=== PATIENT | female | born 1950 | race Two or more races ===

== ENCOUNTER 2024-11-08 08:12 | Outpatient (AMB) | payer MEDICARE, SELFPAY ==
--- NOTE | 2024-11-08 08:23 | MHC.OFFVIS ---
Vital Signs 11/08/24 08:35 Height 4 ft 11 in Weight 146 lb BMI 29.5 BP 143/63 H Blood Pressure Location Rt brachial Position Sitting Pulse 77 Intake Visit Reasons: inguinal hernia Intake Note: Patient referred by pcp Aby Chavez PA-C for assessment of Rt inguinal hernia. Patient c/o: on and off pain for 8mo. Hx of osteoporosis. Abdomen US/ [facility]: 10-28-2024 CT abd pelvis: 06-21-2024 Financial Services Sales Representative Required: No Accompanied by: daughter Tali Allergies No Known Allergies Allergy (Verified 11/08/24 08:28) Medication List - Last Reconciled 11/08/24 by Clement Jaramillo MD acetaminophen (Tylenol) 325 mg PO QID PRN ascorbic acid (vitamin C) mg PO cholecalciferol (vitamin D3) 125 mcg PO DAILY diclofenac sodium 75 mg PO BID lisinopril-hydrochlorothiazide 10-12.5 mg 1 tab PO DAILY lorazepam 0.5 mg PO BID PRN HPI Comments Details: 74-year-old female patient presenting for evaluation of a right inguinal hernia. She reports having persistent pain in the right lower quadrant radiating into the back for at least 8 months. This was initially thought to be related to osteoarthritis in the hip. She underwent cortisone injections without any improvement. They also were concerned about arthritis in the spine and similarly underwent cortisone injections without improvement. She began to feel a lump in the right groin which increased in size with standing and walking but would reduce slightly when in bed. Palpation of the lump caused pain. Subsequent workup with ultrasound revealed a right inguinal hernia containing fat. She presents today to discuss repair of this right inguinal hernia. She does report nausea without vomiting, anorexia, diarrhea without constipation. She has a previous history of cholecystectomy, hyperactive bladder for which she received Botox injections and ectopic 46 years ago. She had a previous midline incision for the ectopic . She later underwent abdominoplasty approximately 20 years ago and now has a low transverse incision. [facility] Medical History Mass of left adrenal gland Pain of right hip joint Impaired fasting glucose Right lower quadrant pain Urinary incontinence Palpitations Fatigue Cervical paraspinous muscle spasm Spasm of back muscles Lumbar radiculopathy Low back pain Spinal stenosis of lumbar region Degeneration of lumbosacral intervertebral disc Acquired cystic kidney disease Gastroduodenitis Allergic rhinitis Low blood pressure Carpal tunnel syndrome Migraine Obstructive sleep apnea syndrome Stress Tension type headache Anxiety Major depressive disorder Anemia Hyperlipidemia UTI (urinary tract infection) Hyperactivity of bladder Osteoporosis HTN (hypertension) Surgical History Hx laparoscopic cholecystectomy History of arthroplasty of left knee Family History Mother Uterine cancer Malignant neoplasm of liver Heart disease Sister Breast cancer Depressive disorder Malignant neoplasm of ovary Malignant neoplasm of lung Father Prostate CA Daughter Chronic leukemia Daughter Colon cancer Social History Alcohol intake: current Alcohol intake frequency: holidays/special occasions only Patient Tobacco Use Status: Never used Tobacco Review of Systems Const All systems reviewed & are unremarkable except as noted in HPI and below Physical Exam Vital Signs: Last Vital Signs Pulse 77 11/08/24 08:35 BP 143/63 H 11/08/24 08:35 BMI result Body Mass Index 29.5 Const General: cooperative and no acute distress Nutritional Appearance: well nourished Orientation/consciousness: patient oriented x3 Limitations: no limitations HEENT Head: Yes normocephalic and Yes atraumatic Ears: hearing grossly normal bilaterally Resp Effort & Inspection: normal respiratory effort, no audible wheezes, no cough and no respiratory distress Cardio Jugular venous distension: no JVD GI Other: Palpable mass in noted in the right groin below the abdominoplasty incision which increases with Valsalva maneuvers but does reduce with light pressure. There is some mild tenderness to palpation. No hernia noted on the left side. No umbilical hernia. Inspection: Yes normal to inspection Skin Other: Warm, dry, no rash Neuro General: patient oriented x3 Extrem General: Yes no clubbing, cyanosis or edema Assessment & Plan Assessment & Plan (1) Reducible right inguinal hernia: Code(s): K40.90 - Unilateral inguinal hernia, without obstruction or gangrene, not specified as recurrent Category: Medical Plan 74-year-old female patient presenting with a reducible right inguinal hernia. I reviewed the options for repair and after discussion of the procedure, risks and alternatives, she consents to an open repair of the right inguinal hernia with mesh. This will be performed as a short-stay surgery. We discussed postoperative management including restricted lifting to 10 lb for the 1st month after surgery. She expressed understanding and agrees with the plan. Coding Level of Care Code New Pt Level 4 (41109) Diagnoses Reducible right inguinal hernia K40.90
[2024-11-08 08:35] VITALS: BP 143/63; PULSE 77; BMI 29.5
== END 2024-11-08 08:56 | disposition home or self-care (01) ==
LOC: HO.HGS 08:13
PROVIDERS: PCP Student in an Organized Health Care Education/Training Program; Visit Provider Surgery
DX: K40.90 Unilateral inguinal hernia, without obstruction or gangrene, not specified as recurrent (principal)
CPT/HCPCS: 99204

== ENCOUNTER → 2024-11-08 08:12 | Outpatient (BNVA) | payer MEDICARE, SELFPAY | PROVIDERS: PCP Student in an Organized Health Care Education/Training Program; Visit Provider Surgery | DX: K40.90 Unilateral inguinal hernia, without obstruction or gangrene, not specified as recurrent (principal) | CPT/HCPCS: 99202 ==

== ENCOUNTER 2024-11-30 09:55 | Day surgery (SDC) | payer MEDICARE, SELFPAY ==
[2024-11-25 08:31] VITALS: BMI 29.5
--- OUTSIDE RECORDS SUMMARY | 2024-11-25 10:52 | XMS_ITS | Clinical Summary ---
Author Organization [address] [facility] Address [address] [place] [address] Phone Care Team Providers Care Circular Shear Operator Name Role Phone Dalton Fernandez MD Primary Care Provider [phone] Social History Tobacco Use Types Packs/Day Years Used Date Smoking Tobacco: Never Assessed Comments Unknown Sex and Gender Information Value Date Recorded Sex Assigned at Not on file Legal Sex Female 8:53 AM EST Gender Identity Not on file Sexual Orientation Not on file Plan of Treatment Health Maintenance Due Date Last Done Comments DTaP,Tdap,and Td Vaccines (1 - Tdap) 1971 Pneumococcal Vaccine: 50+ Years (1 of 1 - PCV) 2002 Zoster Vaccines (1 of 2) 2002 Colorectal Cancer Screening: Colonoscopy 03/02/2022 Falls Risk Assessment 03/02/2022 Hepatitis C Screening 03/02/2022 Medicare Annual Wellness Visit 03/02/2022 Social Influencers of Health Screening 03/02/2022 COVID-19 Vaccine ( season) 2023 Depression Screening 03/30/2024 Influenza Vaccine (#1) 2024 Breast Cancer Screening 07/23/2025 07/24/19 24, 07/22/2022, 07/19/2021, Additional history exists RSV Immunization Adult Patients (1 - 1-dose 75+ series) 2027 Osteoporosis Screening (Bone Density Screening) 07/27/2033 07/28/2023 HIB Vaccines Aged Out No longer eligi ble based on patient's age to complete this topic HPV Vaccines Aged Out No longer eligi ble based on patient's age to complete this topic Hepatitis A Vaccines Aged Out No long er eligible based on patient's age to complete this topic Hepatitis B Vaccines Aged Out No long er eligible based on patient's age to complete this topic IPV Vaccines Aged Out No longer eligi ble based on patient's age to complete this topic MMR Vaccines Aged Out No longer eligi ble based on patient's age to complete this topic Meningococcal ACWY Vaccine Aged Out N o longer eligible based on patient's age to complete this topic Meningococcal B Vaccine Aged Out No l onger eligible based on patient's age to complete this topic RSV Immunization Patients Under 20 months Aged Out No longer eligible based on patient's age to complete this topic Varicella Vaccines Aged Out No longer eligible based on patient's age to complete this topic Procedures Procedure Name Priority Date/Time Associated Diagnosis Comments [facility] DEXA AXIAL SKELETON Routine 07/28/2023 10:57 AM EDT Age-related osteoporosis without current pathological fracture [facility] SCREENING DIGITAL Routine 07/24/2023 3:39 PM EDT Encounter for screening mammogram for malignant neoplasm of breast from Last 3 Months or Most Recently Relevant to Health Maintenance Results * [facility] DEXA AXIAL SKELETON (07/28/2023 10:57 AM EDT) Anatomical Region Laterality Modality Mammography 07/28/2023 10:2 8 AM EDT Narrative 07/28/2023 10:57 AM EDT [facility] Diagnostic Imaging Department [address] [place] [address] Patient: JARQUINDIANE /Age/Sex: 1950 - 73 - F Unit#: [id number] Location/Status: SPDIMAM/REG CLI [facility] Ordering Physician: COBY MCKEON PA-C [facility] Dexa Axial Skeleton - 07/28/23 - 1049 Report Status:Signed HISTORY: The patient is a 73-year-old postmenopausal female with clinical concern for metabolic bone disease. FINDINGS: Dual energy x-ray absorptiometry of the lumbar spine and femurs is performed. The mean bone mineral density at L1-2 is 0.962 gm/cm2 which is 83% of that of young normals and 96% of that of age matched controls. This yields a T- score of -1.7 and a Z-score of -0.3 which is diagnostic of osteopenia. The mean bone mineral density of the femurs bilaterally is 0.779 gm/cm2 which is 77% of that of young normals and 92% of that of age matched controls. This yields a T-score of -1.8 and a Z-score of -0.5 which is diagnostic of osteopenia. However, the T-score of the right femoral neck is -3.0 and that of the left femoral neck is -2.5 which is diagnostic of osteoporosis. IMPRESSION: 1. Osteoporosis. 2. FRAX analysis yields a 10-year probability of major osteoporotic fracture of 10.4% and a 10-year probability of hip fracture of 3.3%. Code 35185 Dictating Physician: MIGUEL VALDIVIA MD Electronically Signed by: MIGUEL VALDIVIA MD Dic Date/Time: 07/28/23 1056 Sign date/Time: 07/28/23 105 Procedure Note Miguel Valdivia MD - 11/16/2023 [facility] Diagnostic Imaging Department [address] [place] [address] [id number] Patient: DIANE JARQUIN/Age/Sex: 1950 - 73 - F Unit#: [id number] Location/Status: SPDIMAM/REG CLI Mnemonic/Ordering Site: [facility] Ordering Physician: COBY MCKEON PA-C [facility] Dexa Axial Skeleton - 07/28/23 - 104 Report Status:Signed HISTORY: The patient is a 73-year-old postmenopausal female withclinical concern for metabolic bone disease. FINDINGS: Dual energy x-ray absorptiometry of the lumbar spine and femursis performed. The mean bone mineral density at L1-2 is 0.962 gm/cm2 which is83% of that of young normals and 96% of that of age matched controls. This yieldsa T- score of -1.7 and a Z-score of -0.3 which is diagnostic of osteopenia. The mean bone mineral density of the femurs bilaterally is 0.779 gm/hy3fkvub is 77% of that of young normals and 92% of that of age matched controls.This yields a T-score of -1.8 and a Z-score of -0.5 which is diagnostic of osteopenia. However, the T-score of the right femoral neck is -3.0 andthat of the left femoral neck is -2.5 which is diagnostic of osteoporosis. IMPRESSION: 1. Osteoporosis. 2. FRAX analysis yields a 10-year probability of major osteoporoticfracture of 10.4% and a 10-year probability of hip fracture of 3.3%. Code 17554 Dictating Physician: MIGUEL VALDIVIA MD Electronically Signed by: MIGUEL VALDIVIA MD Dic Date/Time: 07/28/23 105 Sign date/Time: 07/28/231056 Coby CHINO IMG BI PROCEDURES Final Result * [facility] SCREENING DIGITAL (07/24/2023 3:39 PM EDT) Anatomical Region Laterality Modality Mammography 07/24/2023 12:4 0 PM EDT Narrative 07/24/2023 3:39 PM EDT [facility] Diagnostic Imaging Department [address] [place] [id number] Patient: DIANE JARQUIN /Age/Sex: 1950 - 73 - F Unit#: [id number] Location/Status: CHRISTOPHER/LONA CLI Mnemonic/Ordering Site: [facility] Ordering Physician: SAM GUILLEN PA-C [facility] Screening Digital - 07/24/23 - 1301 Report Status:Signed EXAM: [facility] Screening Digital EXAM DATE AND TIME: 07/24/2023 1:02 PM HISTORY: Screening. Reduction mammoplasty in 2005. Previous left breast biopsy, pathology benign. Sister had breast carcinoma at age 52. COMPARISON: 07/21/22, 07/19/21, 06/16/20 and earlier exams dating back to 2009. TECHNIQUE: Bilateral digital breast tomosynthesis was performed in the CC and MLO projections. Computer aided detection with [employer] 3D 3.1 was employed. TISSUE DENSITY: a. The breasts are almost entirely fatty. FINDINGS: Reduction mammoplasty sequelae are again noted. No suspicious masses, grouped microcalcifications, or developing architectural distortion are seen. A 1 cm nodular asymmetry in the central right breast is unchanged dating back to the 2009 study, considered benign. Few coarse, benign calcifications are again seen, including skin calcifications. The vascularity is unremarkable. IMPRESSION: Stable mammographic appearance of the breasts. No evidence of malignancy is seen. A negative mammogram in the presence of a clinically suspicious palpable abnormality does not preclude the possibility of malignancy or alter the indications for biopsy. BI-RADS: Category 2: Benign RECOMMENDATION(S): 1: Routine screening mammogram BILATERAL in 1 year. Dictating Physician: JUDITH GLEZ MD Electronically Signed by: JUDITH GLEZ MD Dic Date/Time: 07/24/237 Sign date/Time: 07/24/23 153 Procedure Note Judith Glez MD - 11/16/2023 [facility] Diagnostic Imaging Department [address] [place] [address] Patient: BRITTONDIANE /Age/Sex: 1950 - 73 - F Unit#: [id number] Location/Status: [facility] Mnemonic/Ordering Site: [facility] Ordering Physician: SAM GUILLEN PA-C [facility] Screening Digital - 07/24/23 - 1301 Report Status:Signed EXAM: [facility] Screening Digital EXAM DATE AND TIME: 07/24/2023 1:02 PM HISTORY: Screening. Reduction mammoplasty in 2005. Previous left breast biopsy, pathology benign. Sister had breast carcinoma at age 52. COMPARISON: 07/21/22, 07/19/21, 06/16/20 and earlier exams dating back [id number]. TECHNIQUE: Bilateral digital breast tomosynthesis was performed in the CCand MLO projections. Computer aided detection with [employer] AI 3D 3.1was employed. TISSUE DENSITY: a. The breasts are almost entirely fatty. FINDINGS: Reduction mammoplasty sequelae are again noted. No suspicious masses, grouped microcalcifications, or developingarchitectural distortion are seen. A 1 cm nodular asymmetry in the central right breastis unchanged dating back to the 2009 study, considered benign. Few coarse,benign calcifications are again seen, including skin calcifications. Thevascularity is unremarkable. IMPRESSION: Stable mammographic appearance of the breasts. No evidence of malignancyis seen. A negative mammogram in the presence of a clinically suspicious palpable abnormality does not preclude the possibility of malignancy or alter the indications for biopsy. BI-RADS: Category 2: Benign RECOMMENDATION(S): 1: Routine screening mammogram BILATERAL in 1 year. Dictating Physician: JUDITH GLEZ MD Electronically Signed by: JUDITH GLEZ MD Dic Date/Time: 07/24/23 1537 Sign date/Time: 07/24/231538 Sam CHINO IMG BI PROCEDURES Loren l Result from Last 3 Months or Most Recently Relevant to Health Maintenance Insurance [employer] MEDICARE Care Teams Circular Shear Operator Relationship Specialty Start Date End Date Dalton Fernandez MD [address] [facility] [address] [place], [place] PCP - General Internal Medicine 08/06/12
--- NOTE | 2024-11-29 09:17 | HO.ANESPROP2 ---
Documented by User: Odilia Villa NP 11/29/24 09:18 HPI - Anesthesia Eval Consult details Narrative: 74yo F for Right Repair Hernia Inguinal Reducible with mesh PMFSH Active Problems Active Problems: All Active Problems Reducible right inguinal hernia (Acute) Past Medical History Medical History Mass of left adrenal gland Pain of right hip joint Impaired fasting glucose Right lower quadrant pain Urinary incontinence Palpitations Fatigue Cervical paraspinous muscle spasm Spasm of back muscles Lumbar radiculopathy Low back pain Spinal stenosis of lumbar region Degeneration of lumbosacral intervertebral disc Acquired cystic kidney disease Gastroduodenitis Allergic rhinitis Low blood pressure Carpal tunnel syndrome Migraine Obstructive sleep apnea syndrome Stress Tension type headache Anxiety Major depressive disorder Anemia Hyperlipidemia UTI (urinary tract infection) Hyperactivity of bladder Osteoporosis HTN (hypertension) Family History Family History Mother Uterine cancer Malignant neoplasm of liver Heart disease Sister Breast cancer Depressive disorder Malignant neoplasm of ovary Malignant neoplasm of lung Father Prostate CA Daughter Chronic leukemia Daughter Colon cancer Surgical History Surgical History Hx laparoscopic cholecystectomy History of arthroplasty of left knee Social History Social History Are you a primary rn medicare to a significant other at home: No Do you presently have visiting nurse or other home services: No Alcohol intake: current Alcohol intake frequency: holidays/special occasions only Patient Tobacco Use Status: Never used Tobacco Substance Use Frequency: Daily Have you been hit, kicked, punched, or otherwise hurt by someone within the past year? If so, by whom?: No Are you DNR?: No Advance Directives: No Advance Directives Information Provided: Yes Poor oral hygiene: No Meds Allergies Allergy/AdvReac Type Severity Reaction Status Date / Time No Known Allergies Allergy Verified 11/30/24 10:37 Home Medications ?Medication ?Instructions ?Recorded ?Confirmed ?Last Taken ?Type acetaminophen 325 mg tablet 325 mg PO QID PRN Pain (Scale 11/08/24 11/30/24 Unknown History (Tylenol) Score 1-3) ascorbic acid (vitamin C) 125 mg mg PO 11/08/24 11/08/24 Unknown History capsule cholecalciferol (vitamin D3) 125 125 mcg PO DAILY 11/08/24 11/30/24 Unknown History mcg (5,000 unit) capsule diclofenac sodium 75 mg 75 mg PO BID 11/08/24 11/30/24 11/28/24 History tablet,delayed release lisinopril 10 1 tab PO DAILY 11/08/24 11/30/24 Unknown History mg-hydrochlorothiazide 12.5 mg tablet lorazepam 0.5 mg tablet 0.5 mg PO BID PRN Anxiety 11/08/24 11/30/24 Unknown History Exam Height,Weight and Vital Signs: Height 4 ft 11 in Weight 66.224 kg Assessment and Plan Assessment Anesthesia Assessment: Chart Reviewed Documented by User: Althea Jarquin MD 11/30/24 12:31 [facility] Past Medical History Medical History Mass of left adrenal gland Pain of right hip joint Impaired fasting glucose Right lower quadrant pain Urinary incontinence Palpitations Fatigue Cervical paraspinous muscle spasm Spasm of back muscles Lumbar radiculopathy Low back pain Spinal stenosis of lumbar region Degeneration of lumbosacral intervertebral disc Acquired cystic kidney disease Gastroduodenitis Allergic rhinitis Low blood pressure Carpal tunnel syndrome Migraine Obstructive sleep apnea syndrome Stress Tension type headache Anxiety Major depressive disorder Anemia Hyperlipidemia UTI (urinary tract infection) Hyperactivity of bladder Osteoporosis HTN (hypertension) Family History Family History Mother Uterine cancer Malignant neoplasm of liver Heart disease Sister Breast cancer Depressive disorder Malignant neoplasm of ovary Malignant neoplasm of lung Father Prostate CA Daughter Chronic leukemia Daughter Colon cancer Family history of problems with anesthesia: No Surgical History Surgical History Hx laparoscopic cholecystectomy History of arthroplasty of left knee History of Problems with Anesthesia: No Social History Social History Are you a primary rn medicare to a significant other at home: No Do you presently have visiting nurse or other home services: No Alcohol intake: current Alcohol intake frequency: holidays/special occasions only Patient Tobacco Use Status: Never used Tobacco Substance Use Frequency: Daily Have you been hit, kicked, punched, or otherwise hurt by someone within the past year? If so, by whom?: No Are you DNR?: No Advance Directives: No Advance Directives Information Provided: Yes Poor oral hygiene: No Meds Allergies Allergy/AdvReac Type Severity Reaction Status Date / Time No Known Allergies Allergy Verified 11/30/24 10:37 Home Medications ?Medication ?Instructions ?Recorded ?Confirmed ?Last Taken ?Type acetaminophen 325 mg tablet 325 mg PO QID PRN Pain (Scale 11/08/24 11/30/24 Unknown History (Tylenol) Score 1-3) ascorbic acid (vitamin C) 125 mg mg PO 11/08/24 11/08/24 Unknown History capsule cholecalciferol (vitamin D3) 125 125 mcg PO DAILY 11/08/24 11/30/24 Unknown History mcg (5,000 unit) capsule diclofenac sodium 75 mg 75 mg PO BID 11/08/24 11/30/24 11/28/24 History tablet,delayed release lisinopril 10 1 tab PO DAILY 11/08/24 11/30/24 Unknown History mg-hydrochlorothiazide 12.5 mg tablet lorazepam 0.5 mg tablet 0.5 mg PO BID PRN Anxiety 11/08/24 11/30/24 Unknown History Exam Airway Mallampati Class: III TM Dist: <=3cm Neck ROM: Limited Heart: rrr Lungs: cta Assessment and Plan Assessment Anesthesia Assessment: Anesthesia Plan Discussed Final Anesthetic Review Family History of Problems with Anesthesia: No History of Problems with Anesthesia: No NPO: Yes ASA Class: III Final Preanesthetic Review: No Changes in Pt Med Stat, Meds/Allgs Chart Reviewed, Consent Obtained/Reviewed and Anes Risks/Benef Reviewed Patient Risk: Intermediate Procedure Risk: Intermediate Anesthetic Plan Anesthetic Plan: GA Disposition: Standard PACU
[2024-11-30] MEDS: Lactated Ringers 1,000 ML 100 ML IVCONT (10:05)
[2024-11-30 10:17] VITALS: BMI 29.2
[2024-11-30 10:49] VITALS: BP 130/61; PULSE 85; RESP 18; TEMP 36.7; O2SAT 97
--- NOTE | 2024-11-30 12:10 | MHC.SHP ---
Pre-Procedural Eval Section A - 24 Hr Update-Section A only Date of Service: 11/30/24 The patient is an INPATIENT: No Changes since office visit: Yes Patient answered all questions; No Cold of Flu in the past 2 weeks, No New Medical Problems and No Changes in Medication The patient has been examined within 24 hours of the surgical procedure. The History & Physical has been completed within 30 days and I have reviewed it.: Yes Section B - Complete if H&P > 30 days Chief Complaint: Unilateral inguinal hernia, without obstruction Allergies: Allergies Allergy/AdvReac Type Severity Reaction Status Date / Time No Known Allergies Allergy Verified 11/30/24 10:37 Plan Diagnosis/Plan: Unchanged I have reviewed the history and physical and performed a pertinent physical examination on my patient. No changes have occurred unless specified. Time Spent With Patient Time: Total time managing care of this patient today ____ minutes.
--- NOTE | 2024-11-30 13:35 | W.PM.OPN ---
Operative Note Operative Note Date of Service: 11/30/24 Narrative: Preoperative diagnosis: Right inguinal hernia, reducible Postoperative diagnosis: Same Procedure: Repair of reducible right inguinal hernia with mesh Surgeon: Clement Jaramillo MD Wreath Machine Operator: Cesar Bruce PA-C, LINDSEY Gan Anesthesia: General LMA Indications for procedure: 74-year-old female patient presenting with a palpable lump which is causing discomfort located in the right groin. Over time the lump has increased in size in is causing more pain. Operative findings: Reducible right inguinal hernia direct repaired using a medium PHS mesh Specimen: None Estimated blood loss: 5 mL Complications: None Procedure details: Patient was brought to the OR and placed in a supine position. After administering general anesthesia the patient's abdomen was prepped with ChloraPrep and draped in a sterile fashion. A surgical time-out was called the consent confirmed. Patient received preoperative antibiotics and Venodyne boots were in place. Local anesthesia consisting of 0.5% Sensorcaine and lidocaine were infiltrated into the right groin over the right inguinal ligament. Incision was then made with a scalpel over the right inguinal ligament and carried out through subcutaneous tissue, past Jose's fascia and up to the external oblique aponeurosis. Additional local was placed below the aponeurosis and this was then incised with a scalpel and widened with the Metzenbaum scissors. The inguinal canal was then entered. A crossing nerve was identified within this space which was at risk for entrapment and therefore was sacrificed and cauterized. A direct inguinal hernia was identified through the internal oblique aponeurosis. The sac was dissected down to the fascial defect and reduced into the abdominal cavity. A preperitoneal space was then dissected using an open Ray-Mik sponge. A medium PHS mesh was then obtained and the circular underlay deployed within that preperitoneal space. The overlay was then secured to the pubic tubercle, conjoined tendon, and shelving edge of the inguinal ligament using 0 Polysorb sutures. Wounds were then irrigated with saline solution and suctioned dry. External oblique aponeurosis was then closed using a running 2-0 Polysorb suture. Approximately 5 mL of Zenrelef was then instilled below the external oblique aponeurosis. Jose's fascia and dermis were then reapproximated using interrupted 3-0 Polysorb sutures. Additional local was injected into the subcutaneous tissue. Skin was then closed using a running 4-0 Polysorb subcuticular suture. Sterile dressings consisting of Steri-Strips, 4 x 4 gauze and Tegaderm were then applied. The patient tolerated the procedure well. Sponge, instrument, and needle counts were reported as correct. The patient was transferred to PACU in stable condition.
[2024-11-30 13:50] VITALS: BP 137/68; PULSE 95; RESP 16; TEMP 36.6; O2SAT 97
[2024-11-30 13:55] VITALS: BP 127/79; PULSE 91; RESP 16; O2SAT 97
[2024-11-30 14:00] VITALS: BP 127/79; PULSE 89; RESP 16; O2SAT 96
[2024-11-30 14:05] VITALS: BP 120/70; PULSE 92; RESP 17; O2SAT 96
[2024-11-30 14:20] VITALS: BP 128/62; PULSE 94; RESP 16; TEMP 36.1; O2SAT 98
== END 2024-11-30 15:21 | disposition home or self-care (01) ==
PROVIDERS: Visit Provider Surgery
PROC: (CPT 49505; principal; 2024-11-30 11:50)
DX: K40.90 Unilateral inguinal hernia, without obstruction or gangrene, not specified as recurrent (principal); N32.81 Overactive bladder; R32 Unspecified urinary incontinence; R73.01 Impaired fasting glucose; I10 Essential (primary) hypertension; E78.5 Hyperlipidemia, unspecified; R00.2 Palpitations; D64.9 Anemia, unspecified; M81.0 Age-related osteoporosis without current pathological fracture; M54.16 Radiculopathy, lumbar region; G47.33 Obstructive sleep apnea (adult) (pediatric); Z79.899 Other long term (current) drug therapy; Z90.49 Acquired absence of other specified parts of digestive tract; Z98.890 Other specified postprocedural states
CPT/HCPCS: 49505; C1781; C9088; J0690; J1100; J2003; J2405; J2704; J3010

== ENCOUNTER → 2024-11-30 09:55 | Outpatient (BNV) | payer MEDICARE, SELFPAY | PROVIDERS: Visit Provider Surgery | DX: K40.91 Unilateral inguinal hernia, without obstruction or gangrene, recurrent (principal) | CPT/HCPCS: 49505 ==

== ENCOUNTER 2024-12-13 12:53 | Outpatient (AMB) | payer MEDICARE, SELFPAY ==
--- NOTE | 2024-12-13 12:56 | A.OFFVIS_ITS ---
Vital Signs 12/13/24 13:03 Height 4 ft 11 in Weight 145 lb BMI 29.3 BP 127/62 Blood Pressure Location Lt brachial Position Sitting Pulse 82 Intake Visit Reasons: S/P RIH w/mesh Intake Note: Patient is seen in office for post op assessment post right inguinal hernia repair. Pt c/o: denies any concerns surgery:11/30/24 Knot Borer Required: No Accompanied by: Family/Other Allergies No Known Allergies Allergy (Verified 12/13/24 13:03) Medication List - Last Reconciled 12/13/24 by Clement Jaramillo MD acetaminophen (Tylenol) 325 mg PO QID PRN ascorbic acid (vitamin C) mg PO cholecalciferol (vitamin D3) 125 mcg PO DAILY diclofenac sodium 75 mg PO BID lisinopril-hydrochlorothiazide 10-12.5 mg 1 tab PO DAILY lorazepam 0.5 mg PO BID PRN HPI Comments Details: 74-year-old female patient returning 2 weeks following repair of a right inguinal hernia with mesh. She tolerated the procedure well and her wounds are healing nicely. She denies any nausea, vomiting, fever or chills. She is eating well and denies any difficulty with the bowels. [facility] Medical History Mass of left adrenal gland Pain of right hip joint Impaired fasting glucose Right lower quadrant pain Urinary incontinence Palpitations Fatigue Cervical paraspinous muscle spasm Spasm of back muscles Lumbar radiculopathy Low back pain Spinal stenosis of lumbar region Degeneration of lumbosacral intervertebral disc Acquired cystic kidney disease Gastroduodenitis Allergic rhinitis Low blood pressure Carpal tunnel syndrome Migraine Obstructive sleep apnea syndrome Stress Tension type headache Anxiety Major depressive disorder Anemia Hyperlipidemia UTI (urinary tract infection) Hyperactivity of bladder Osteoporosis HTN (hypertension) Surgical History Hx of right inguinal hernia repair (11/30/24) Hx laparoscopic cholecystectomy History of arthroplasty of left knee Family History Mother Uterine cancer Malignant neoplasm of liver Heart disease Sister Breast cancer Depressive disorder Malignant neoplasm of ovary Malignant neoplasm of lung Father Prostate CA Daughter Chronic leukemia Daughter Colon cancer Social History Are you a primary day care director to a significant other at home: No Do you presently have visiting nurse or other home services: No Alcohol intake: current Alcohol intake frequency: holidays/special occasions only Patient Tobacco Use Status: Never used Tobacco Physical Exam Vital Signs: Last Vital Signs Pulse 82 12/13/24 13:03 BP 127/62 12/13/24 13:03 BMI result Body Mass Index 29.3 Const General: comfortable Nutritional Appearance: well nourished Orientation/consciousness: patient oriented x3 Limitations: ambulation with cane Resp Effort & Inspection: normal respiratory effort GI Other: Well-healed right inguinal incision with the expected healing ridge. No hernia noted with Valsalva maneuvers. Wounds are clean without redness or discharge. Neuro General: patient oriented x3 Extrem Other: No edema Assessment & Plan Assessment & Plan (1) Reducible right inguinal hernia: Code(s): K40.90 - Unilateral inguinal hernia, without obstruction or gangrene, not specified as recurrent Category: Medical Plan 74-year-old female patient returning 2 weeks following repair of a right inguinal hernia with mesh. She tolerated the procedure well and her wounds are healing nicely. She should continue to avoid lifting greater than 10 lb and return in approximately 1 month for follow-up examination. Coding Level of Care Code Global (08110) Diagnoses Reducible right inguinal hernia K40.90
[2024-12-13 13:03] VITALS: BP 127/62; PULSE 82; BMI 29.3
--- OUTSIDE RECORDS SUMMARY | 2024-12-13 16:49 | XMS_ITS | Clinical Summary ---
Author Organization [address] [facility] Address [address] [place] [address] Phone Care Team Providers Care Kiss Mixer Name Role Phone Dalton Fernandez MD Primary Care Provider [phone] Social History Tobacco Use Types Packs/Day Years [...] 03/02/2022 Social Influencers of Health Screening 03/02/2022 Depression Screening 03/30/2024 COVID-19 Vaccine ( season) 2024 Influenza Vaccine (#1) 2024 Breast Cancer Screening [...] Procedure Name Priority Date/Time Associated Diagnosis Comments [facility] DEXA AXIAL SKELETON Routine 07/28/2023 10:57 AM EDT Age-related osteoporosis without current pathological fracture [facility] SCREENING DIGITAL Routine 07/24/2023 3:39 PM EDT Encounter for screening mammogram for malignant neoplasm of breast from Last 3 Months or Most Recently Relevant to Health Maintenance Results * [facility] DEXA AXIAL SKELETON (07/28/2023 10:57 AM EDT) Anatomical Region Laterality Modality Mammography 07/28/2023 10:2 8 AM EDT Narrative 07/28/2023 10:57 AM EDT [facility] Diagnostic Imaging Department [address] [place] [address] Patient: JARQUINDIANE /Age/Sex: 1950 - 73 - F Unit#: [id number] Location/Status: SPDIMAM/REG CLI [facility] Ordering Physician: COBY MCKEON PA-C [facility] Dexa [...] probability of hip fracture of 3.3%. Code 75237 Dictating Physician: MIGUEL VALDIVIA MD Electronically Signed by: MIGUEL VALDIVIA MD Dic Date/Time: 07/28/23 1056 Sign date/Time: 07/28/23 105 Procedure Note Miguel Valdivia MD - 11/16/2023 [facility] Diagnostic Imaging Department [address] [place] [id number] Patient: DIANE JARQUIN/Age/Sex: 1950 - 73 - F Unit#: [id number] Location/Status: SPDIMAM/REG CLI Mnemonic/Ordering Site: [facility] Ordering Physician: COBY MCKEON PA-C [facility] Dexa Axial Skeleton - 07/28/23 - 104 [...] density of the femurs bilaterally is 0.779 gm/ce9zztik is 77% of that of young normals [...] probability of hip fracture of 3.3%. Code 47977 Dictating Physician: MIGUEL VALDIVIA MD Electronically Signed by: MIGUEL VALDIVIA MD Dic Date/Time: 07/28/23 105 Sign date/Time: 07/28/231056 Coby CHINO IMG BI PROCEDURES Final Result * [facility] SCREENING DIGITAL (07/24/2023 3:39 PM EDT) Anatomical Region Laterality Modality Mammography 07/24/2023 12:4 0 PM EDT Narrative 07/24/2023 3:39 PM EDT [facility] Diagnostic Imaging Department [address] [place] [id number] Patient: DIANE JARQUIN /Age/Sex: 1950 - 73 - F Unit#: [id number] Location/Status: [facility] CLI Mnemonic/Ordering Site: [facility] Ordering Physician: SAM GUILLEN PA-C [facility] Screening Digital - 07/24/23 - 1301 Report Status:Signed EXAM: [facility] Screening Digital EXAM DATE AND TIME: 07/24/2023 1:02 PM HISTORY: Screening. Reduction mammoplasty in 2005. Previous left breast biopsy, pathology benign. Sister had breast carcinoma at age 52. COMPARISON: 07/21/22, 07/19/21, 06/16/20 and earlier exams dating back to 2009. TECHNIQUE: Bilateral digital breast tomosynthesis was performed in the CC and MLO projections. Computer aided detection with MC[employer] 3D 3.1 was employed. TISSUE DENSITY: a. [...] Procedure Note Judith Glez MD - 11/16/2023 [facility] Diagnostic Imaging Department [address] [place] [address] Patient: BRITTONDIAEN /Age/Sex: 1950 - 73 - F Unit#: [id number] Location/Status: [facility] Mnemonic/Ordering Site: [facility] Ordering Physician: SAM GUILLEN PA-C [facility] Screening Digital - 07/24/23 - 1301 Report Status:Signed EXAM: [facility] Screening Digital EXAM DATE AND TIME: 07/24/2023 1:02 PM HISTORY: Screening. Reduction mammoplasty in 2005. Previous left breast biopsy, pathology benign. Sister had breast carcinoma at age 52. COMPARISON: 07/21/22, 07/19/21, 06/16/20 and earlier exams dating back [id number]. TECHNIQUE: Bilateral digital breast tomosynthesis was performed in the CCand MLO projections. Computer aided detection with iCAD [employer] AI 3D 3.1was employed. TISSUE DENSITY: a. [...] Maintenance Insurance [employer] Care Teams Kiss Mixer Relationship Specialty Start Date End Date Dalton Fernandez MD [address] [facility] [address] [place], [place] PCP - General Internal Medicine 08/06/12
== END 2024-12-13 13:06 | disposition home or self-care (01) ==
LOC: HO.HGS 12:54
PROVIDERS: PCP Student in an Organized Health Care Education/Training Program; Visit Provider Surgery
DX: K40.90 Unilateral inguinal hernia, without obstruction or gangrene, not specified as recurrent (principal)
CPT/HCPCS: 99024

== ENCOUNTER → 2024-12-13 12:53 | Outpatient (BNVA) | payer MEDICARE, SELFPAY | PROVIDERS: PCP Student in an Organized Health Care Education/Training Program; Visit Provider Surgery | DX: Z98.890 Other specified postprocedural states (principal); K40.90 Unilateral inguinal hernia, without obstruction or gangrene, not specified as recurrent | CPT/HCPCS: 99212 ==

== ENCOUNTER 2025-01-20 11:05 | Outpatient (AMB) | payer MEDICARE, SELFPAY ==
--- NOTE | 2025-01-20 11:06 | MHC.OFFVIS ---
Vital Signs 01/20/25 11:12 Height 4 ft 11 in Weight 146 lb BMI 29.5 BP 138/63 Blood Pressure Location Rt brachial Position Sitting Pulse 84 Intake Visit Reasons: one month post RIH repair Intake Note: Patient is seen in office for one month follow up visit, post RIH repair. Pt c/o: concerned when pressing down along incision it feels hard. Reports incision healed completely. Sales Estimator Required: No Accompanied by: daughter Tali Allergies No Known Allergies Allergy (Verified 01/20/25 11:14) HPI Comments Details: 74-year-old female returning 1 month following repair of a right inguinal hernia with mesh on 11/30/2024. Since her last visit she denies any new symptoms. She does feel some hardness in the lateral portion of the incision but denies any pain associated with the incision. She denies nausea, vomiting, fever, chills, diarrhea or constipation. [facility] Medical History Mass of left adrenal gland Pain of right hip joint Impaired fasting glucose Right lower quadrant pain Urinary incontinence Palpitations Fatigue Cervical paraspinous muscle spasm Spasm of back muscles Lumbar radiculopathy Low back pain Spinal stenosis of lumbar region Degeneration of lumbosacral intervertebral disc Acquired cystic kidney disease Gastroduodenitis Allergic rhinitis Low blood pressure Carpal tunnel syndrome Migraine Obstructive sleep apnea syndrome Stress Tension type headache Anxiety Major depressive disorder Anemia Hyperlipidemia UTI (urinary tract infection) Hyperactivity of bladder Osteoporosis HTN (hypertension) Surgical History Hx of right inguinal hernia repair (11/30/24) Hx laparoscopic cholecystectomy History of arthroplasty of left knee Family History Mother Uterine cancer Malignant neoplasm of liver Heart disease Sister Breast cancer Depressive disorder Malignant neoplasm of ovary Malignant neoplasm of lung Father Prostate CA Daughter Chronic leukemia Daughter Colon cancer Social History Are you a primary health care manager to a significant other at home: No Do you presently have visiting nurse or other home services: No Alcohol intake: current Alcohol intake frequency: holidays/special occasions only Patient Tobacco Use Status: Never used Tobacco Physical Exam Const General: comfortable Nutritional Appearance: well nourished Orientation/consciousness: patient oriented x3 Limitations: ambulation with cane Resp Effort & Inspection: normal respiratory effort GI Other: Well-healed right inguinal incision with the expected healing ridge. No hernia noted with Valsalva maneuvers. Wounds are clean without redness or discharge. Neuro General: patient oriented x3 Extrem Other: No edema Assessment & Plan Assessment & Plan (1) Reducible right inguinal hernia: Code(s): K40.90 - Unilateral inguinal hernia, without obstruction or gangrene, not specified as recurrent Category: Medical Plan Patient returns 1 month following repair of a right inguinal hernia with mesh. Her wounds are clean, dry and intact without evidence of hernia recurrence. She may resume normal activity without restrictions and should follow up as needed. Coding Level of Care Code Global (60336) Diagnoses Reducible right inguinal hernia K40.90
[2025-01-20 11:12] VITALS: BP 138/63; PULSE 84; BMI 29.5
--- OUTSIDE RECORDS SUMMARY | 2025-01-20 13:22 | XMS_ITS | Clinical Summary ---
Author Organization 175 [facility] Address [address] [place] [address] Phone Care Team Providers Care Financial Services Assistant Name Role Phone Dalton Fernandez MD Primary Care Provider [phone] Social History Tobacco Use Types Packs/Day Years Used Date Smoking Tobacco: Never Assessed Comments Unknown Sex and Gender Information Value Date Recorded Sex Assigned at Not on file Legal Sex Female 8:53 AM EST Gender Identity Not on file Sexual Orientation Not on file Plan of Treatment Health Maintenance Due Date Last Done Comments Colorectal Cancer Screening: Colonoscopy 1950 DTaP,Tdap,and Td Vaccines (1 - Tdap) 1971 Pneumococcal Vaccine: 50+ Years (1 of 1 - PCV) 2002 Zoster Vaccines (1 of 2) 2002 Falls Risk Assessment 03/02/2022 Hepatitis C Screening 03/02/2022 Medicare Annual Wellness Visit 03/02/2022 Social Influencers of Health Screening 03/02/2022 Depression Screening 03/30/2024 COVID-19 Vaccine ( - season) 2024 Influenza Vaccine (#1) 2024 Breast [...] Procedure Name Priority Date/Time Associated Diagnosis Comments [facility] DEXA AXIAL SKELETON Routine 07/28/2023 10:57 AM EDT Age-related osteoporosis without current pathological fracture [facility] SCREENING DIGITAL Routine 07/24/2023 3:39 PM EDT Encounter for screening mammogram for malignant neoplasm of breast from Last 3 Months or Most Recently Relevant to Health Maintenance Results * [facility] DEXA AXIAL SKELETON (07/28/2023 10:57 AM EDT) Anatomical Region Laterality Modality Mammography 07/28/2023 10:2 8 AM EDT Narrative 07/28/2023 10:57 AM EDT [facility] Diagnostic Imaging Department [address] [place] [address] Patient: JARQUINDIANE /Age/Sex: 1950 - 73 - F Unit#: [id number] Location/Status: SPDIMAM/REG CLI Mnemonic[facility] Ordering Physician: COBY MCKEON PA-C [facility] Dexa [...] probability of hip fracture of 3.3%. Code 53306 Dictating Physician: MIGUEL VALDIVIA MD Electronically Signed by: MIGUEL VALDIVIA MD Dic Date/Time: 07/28/23 1056 Sign date/Time: 07/28/23 105 Procedure Note Miguel Valdivia MD - 11/16/2023 [facility] Diagnostic Imaging Department [address] [place] [id number] Patient: DIANE JARQUIN/Age/Sex: 1950 - 73 - F Unit#: [id number] Location/Status: SPDIMAM/REG CLI Mnemonic/Ordering Site: [facility] Ordering Physician: COBY MCKEON PA-C [facility] Dexa Axial Skeleton - 07/28/23 - [...] density of the femurs bilaterally is 0.779 gm/up8udhku is 77% of that of young normals [...] probability of hip fracture of 3.3%. Code 79026 Dictating Physician: MIGUEL VALDIVIA MD Electronically Signed by: MIGUEL VALDIVIA MD Dic Date/Time: 07/28/23 105 Sign date/Time: 07/28/231056 Coby CHINO IMG BI PROCEDURES Final Result * [facility] SCREENING DIGITAL (07/24/2023 3:39 PM EDT) Anatomical Region Laterality Modality Mammography 07/24/2023 12:4 0 PM EDT Narrative 07/24/2023 3:39 PM EDT [facility] Diagnostic Imaging Department [address] [place] [id number] Patient: DIANE JARQUIN /Age/Sex: 1950 - 73 - F Unit#: [id number] Location/Status: [facility] CLI Mnemonic/Ordering Site: [facility] Ordering Physician: SAM GUILLEN PA-C [facility] Screening Digital - 07/24/23 - 1301 Report Status:Signed EXAM: [facility] Screening Digital EXAM DATE AND TIME: 07/24/2023 1:02 PM HISTORY: Screening. Reduction mammoplasty in 2005. Previous left breast biopsy, pathology benign. Sister had breast carcinoma at age 52. COMPARISON: 07/21/22, 07/19/21, 06/16/20 and earlier exams dating back to 2009. TECHNIQUE: Bilateral digital breast tomosynthesis was performed in the CC and MLO projections. Computer aided detection with [employer] 3D 3.1 was employed. TISSUE DENSITY: a. [...] Procedure Note Judith Glez MD - 11/16/2023 [facility] Diagnostic Imaging Department [address] [place] [address] Patient: BRITTONDIANE /Age/Sex: 1950 - 73 - F Unit#: [id number] Location/Status: [facility] Mnemonic/Ordering Site: [facility] Ordering Physician: SAM GUILLEN PA-C [facility] Screening Digital - 07/24/23 - 1301 Report Status:Signed EXAM: [facility] Screening Digital EXAM DATE AND TIME: 07/24/2023 1:02 PM HISTORY: Screening. Reduction mammoplasty in 2005. Previous left breast biopsy, pathology benign. Sister had breast carcinoma at age 52. COMPARISON: 07/21/22, 07/19/21, 06/16/20 and earlier exams dating back [id number]. TECHNIQUE: Bilateral digital breast tomosynthesis was performed in the CCand MLO projections. Computer aided detection with [employer] AI 3D 3.1was employed. TISSUE DENSITY: a. [...] Maintenance Insurance [employer] MED[employer] Care Teams Financial Services Assistant Relationship Specialty Start Date End Date Dalton Fernandez MD [address] [facility] [address] [place], [place] PCP - General Internal Medicine 08/06/12
== END 2025-01-20 11:15 | disposition home or self-care (01) ==
LOC: HO.HGS 11:05
PROVIDERS: PCP Student in an Organized Health Care Education/Training Program; Visit Provider Surgery
DX: K40.90 Unilateral inguinal hernia, without obstruction or gangrene, not specified as recurrent (principal)
CPT/HCPCS: 99024

== ENCOUNTER → 2025-01-20 11:05 | Outpatient (BNVA) | payer MEDICARE, SELFPAY | PROVIDERS: PCP Student in an Organized Health Care Education/Training Program; Visit Provider Surgery | DX: K40.90 Unilateral inguinal hernia, without obstruction or gangrene, not specified as recurrent (principal); Z48.89 Encounter for other specified surgical aftercare | CPT/HCPCS: 99212 ==